=== PATIENT | male | born 1940 | race Caucasian/White ===

== ENCOUNTER 2017-04-19 15:15 | Emergency (ER) | payer OTHER ==
[~2017-04-19] VITALS: Ht 180.3 cm; Wt 82.6 kg
[~2017-04-19 15:15] MED LIST: ASPIRIN81 M2; GLUCOPHAGE1000 MG; HYDROCHLOROTHIA25 M1 PO; KLOR-CON 10 ER10 MEQ PO; LISINOPRIL10 MG; NORCO 5-325 TA1 EACH PO; PRAVASTATIN SOD40 MG PO; TAMSULOSIN HCL0.4 M1 PO; TOPROL XL25 MG; ZOFRAN ODT4 MG PO
[2017-04-19 15:37] LABS: HEMATOCRIT 39.1 % (42.0-52.0); HEMOGLOBIN 13.4 gm/dL (14.0-18.0); MCH 33.7 pg (26.0-34.0); MCHC 34.2 g/dL (28.0-37.0); MCV 98.7 fL (80.0-100.0); RBC 3.96 mil/uL (4.50-6.00); RDW 13.5 % (10.5-14.5); WBC 9.3 thou/uL (4.0-11.0)
[2017-04-19] MEDS ORDERED: LEXAPRO 10 MG T10 M1 PO (15:38)
[2017-04-19] MEDS ORDERED: LISINOPRIL20 MG PO (15:40)
[2017-04-19] MEDS ORDERED: METFORMIN HCL500 MG PO (15:41)
[2017-04-19] MEDS ORDERED: METOPROLOL TART25 MG PO (15:41)
[2017-04-19 15:48] LABS: CALCIUM 8.6 mg/dL (8.5-10.1); POTASSIUM 3.3 mmol/L (3.5-5.1)
[2017-04-19] MEDS ORDERED: OXYCODONE HCL 55 MG PO (19:22)
[2017-04-19 19:45] VITALS: BP 151/82
== END 2017-04-19 20:01 | disposition home or self-care (01) ==
LOC: ER 15:15
PROVIDERS: Emergency Medicine
DX: S22.029A Unspecified fracture of second thoracic vertebra, initial encounter for closed fracture (principal); S01.01XA Laceration without foreign body of scalp, initial encounter; I10 Essential (primary) hypertension; E11.9 Type 2 diabetes mellitus without complications; F17.210 Nicotine dependence, cigarettes, uncomplicated; F10.99 Alcohol use, unspecified with unspecified alcohol-induced disorder; Z96.641 Presence of right artificial hip joint; W10.9XXA Fall (on) (from) unspecified stairs and steps, initial encounter; Y93.01 Activity, walking, marching and hiking; Y92.89 Other specified places as the place of occurrence of the external cause; Y99.8 Other external cause status